=== PATIENT | male | born 1980 | race Two or more races ===

== ENCOUNTER 2023-06-01 12:07 | Day surgery (SDC) | payer BC ==
[~2023-06-01 12:07] MED LIST: Acetaminophen 325 MG Tab PO ONE; Gabapentin 300 MG Cap PO ONE; Lactated Ringers 1,000 ML IV SCH; Sodium Chloride 0.9% 10 ML Syringe FLUSH PRN; Sodium Chloride 0.9% 10 ML Syringe FLUSH SCH
[2023-06-01] MEDS ORDERED: EPINEPHrine 1 MG/ML SDV ONE (12:30)
[2023-06-01] MEDS ORDERED: Bupivacaine 0.5% 30 ML SDV ONE (12:30)
[2023-06-01] MEDS ORDERED: Lidocaine 1% 30 ML SDV ONE (12:30)
[2023-06-01] MEDS ORDERED: Rocuronium 50 MG/5 ML Vial ONE (12:42)
[2023-06-01] MEDS ORDERED: Midazolam 1 MG/ML 2 ML SDV ONE (12:43)
[2023-06-01] MEDS ORDERED: fentaNYL 250 MCG/5 ML SDV ONE (12:43)
[2023-06-01] MEDS ORDERED: Lidocaine 1% 4 ML ONE (12:43)
[2023-06-01] MEDS ORDERED: Ketorolac 30 MG/ML SDV ONE (12:43)
[2023-06-01] MEDS ORDERED: Ondansetron 4 MG/2 ML SDV ONE (12:43)
[2023-06-01] MEDS ORDERED: Dexamethasone 4 MG/ML 5 ML MDV ONE (12:43)
[2023-06-01] MEDS ORDERED: Propofol 200 MG/20 ML SDV ONE (12:43)
[2023-06-01] MEDS ORDERED: ceFAZolin 2 GM Vial ONE (12:45)
[2023-06-01] MEDS ORDERED: Ketamine 200 MG/20 ML MDV ONE (13:35)
[2023-06-01] MEDS ORDERED: dexmedeTOMIDine HCl 200 MCG/2 ML SDV ONE (13:44)
[2023-06-01] MEDS ORDERED: Lactated Ringers 1,000 ML ONE (13:52)
[2023-06-01] MEDS ORDERED: fentaNYL 100 MCG/2 ML SDV IVPUSH PRN (14:21)
[2023-06-01] MEDS ORDERED: Ondansetron 4 MG/2 ML SDV IVPUSH PRN (14:21)
[2023-06-01] MEDS ORDERED: HYDROmorphone 0.5 MG/0.5 ML Syringe IVPUSH PRN (14:21)
[2023-06-01] MEDS ORDERED: Acetaminophen/oxyCODONE 325-5 MG Tab PO PRN (15:41)
== END 2023-06-01 17:45 | disposition home or self-care (01) ==
LOC: JD.SDS 12:07
PROVIDERS: ATTEND Surgery
DX: K43.2 Incisional hernia without obstruction or gangrene (principal); K57.32 Diverticulitis of large intestine without perforation or abscess without bleeding; E11.9 Type 2 diabetes mellitus without complications; F17.290 Nicotine dependence, other tobacco product, uncomplicated; Z79.84 Long term (current) use of oral hypoglycemic drugs; Z79.899 Other long term (current) drug therapy
CPT/HCPCS: 49593; A9270; C1781; J0171; J0690; J1100; J1885; J2250; J2405; J2704; J3010; J3490; J7120